=== PATIENT | male | born 1995 | race American Indian/Alaskan Native ===

== ENCOUNTER 2021-12-30 10:47 | Emergency (ER) | payer SELFPAY ==
[2021-12-30 11:47] LABS: Hematocrit 36.6 % (35.5-45.6); Mean Corpuscular HGB Conc 35 % (32-34); Mean Corpuscular Volume 89 fl (84-94); Platelet Count 673 K/mm3 (140-440); Red Blood Count 4.13 M/mm3 (3.65-5.03); Red Cell Distribution Width 14.9 % (13.2-15.2)
[2021-12-30 12:06] LABS: BUN/Creatinine Ratio 5; Blood Urea Nitrogen 5 mg/dL (9-20); Hemolysis Index 10
[2021-12-30 12:58] LABS: Total Cells Counted 100
[2021-12-30 12:59] LABS: Ovalocytes Few; Platelet Estimate Consistent w Auto; Target Cells Few
[2021-12-30 13:00] LABS: Giant Platelets Few
[2021-12-30] MEDS ORDERED: MORPHINE 4 MG/1 ML INJ IV ONE (14:56)
[2021-12-30] MEDS ORDERED: SODIUM CHLORIDE 0.9% 1000 ML 2,000 ML IV ONE (14:56)
[2021-12-30] MEDS ORDERED: ACETAMINOPHEN 500 MG TAB PO ONE (14:57)
--- NOTE | 2021-12-30 15:02 | Emergency Department Report ---
ED General Adult HPI - General Chief complaint: GI Bleed Stated complaint: Abdominal pain. Diarrhea. Blood in stool. Time Seen by Provider: 12/30/21 14:22 Source: patient, RN notes reviewed Mode of arrival: Ambulatory Limitations: No Limitations - History of Present Illness Initial comments: The patient was evaluated in the emergency department for symptoms described in the history of present illness. He/she was evaluated in the context of the [facility] COVID-19 pandemic, which necessitated consideration that the patient might be at risk for infection with the virus that causes COVID-19. Institutional protocols and algorithms that pertain to the evaluation of patients at risk for COVID-19 are in a state of rapid change based on information released by regulatory bodies including the CDC and federal and state organizations. These policies and algorithms were followed during the patient's care in the emergency department. Please note that these policies, procedures and recommendations changed on a rapid basis. This is a pleasant and cooperative 26-year-old gentleman. He has a past medical history of HIV, and is currently made on Biktarvy therapy. He believes his CD4 count is 650, and his viral load is undetectable. He also reports she has been maintained on chronic dapsone therapy. He presents to the department today with a complaint of lower abdominal pain, and profuse diarrhea. Diarrhea is initially yellow, brown, and today he reports dark blood in his diarrhea. He denies additional antibiotics. Denies headache, neck pain, chest pain, shortness of breath, vomiting, dysuria, and testicular pain. He also reports no insertive/receptive anal intercourse. He endorses compliance with his medications. He is not COVID-19 vaccinated. He denies loss of taste and smell. He was previously following with infectious disease in [place], but has relocated locally, and is attempting to establish care here. -: Gradual, days(s) Location: abdomen Quality: aching Consistency: constant Improves with: rest Worsens with: other (Palpation) - Related Data Previous Rx's Medication Instructions Recorded Last Taken Type Acetaminophen [Non-Aspirin Extra 500 mg PO Q6HR PRN #30 tablet 12/30/21 Unknown Rx Strength] Ciprofloxacin HCl 500 mg PO BID #13 tab 12/30/21 Unknown Rx Metoclopramide [Reglan] 10 mg PO QID PRN #30 tablet 12/30/21 Unknown Rx Potassium Chloride 20 meq PO BID #60 packet 12/30/21 Unknown Rx metroNIDAZOLE [Flagyl] 500 mg PO Q8HR #20 tablet 12/30/21 Unknown Rx Allergies Allergy/AdvReac Type Severity Reaction Status Date / Time No Known Allergies Allergy Verified 12/30/21 10:52 ED Review of Systems ROS: Stated complaint: STOMAH PAIN/POSS FOOD POISONING Other details as noted in HPI Constitutional: fever. denies: malaise Eyes: denies: eye discharge ENT: denies: epistaxis Respiratory: denies: see HPI Cardiovascular: denies: chest pain Gastrointestinal: abdominal pain. denies: nausea, vomiting Genitourinary: denies: dysuria Musculoskeletal: denies: back pain Neurological: denies: weakness Hematological/Lymphatic: denies: easy bleeding ED Past Medical Hx - Medications Home Medications: Home Medications Medication Instructions Recorded Confirmed Last Taken Type Acetaminophen [Non-Aspirin Extra 500 mg PO Q6HR PRN #30 tablet 12/30/21 Unknown Rx Strength] Ciprofloxacin HCl 500 mg PO BID #13 tab 12/30/21 Unknown Rx Metoclopramide [Reglan] 10 mg PO QID PRN #30 tablet 12/30/21 Unknown Rx Potassium Chloride 20 meq PO BID #60 packet 12/30/21 Unknown Rx metroNIDAZOLE [Flagyl] 500 mg PO Q8HR #20 tablet 12/30/21 Unknown Rx ED Physical Exam - General Limitations: No Limitations General appearance: alert, in no apparent distress - Head Head exam: Present: atraumatic, normocephalic - Eye Eye exam: Present: normal appearance, EOMI. Absent: nystagmus - ENT ENT exam: Present: normal exam, normal orophraynx, mucous membranes moist, normal external ear exam - Neck Neck exam: Present: normal inspection, full ROM. Absent: tenderness, meningismus - Respiratory Respiratory exam: Present: normal lung sounds bilaterally. Absent: respiratory distress, wheezes, rales, rhonchi, stridor, decreased breath sounds - Cardiovascular Cardiovascular Exam: Present: regular rate, normal rhythm, normal heart sounds. Absent: bradycardia, tachycardia, irregular rhythm, systolic murmur, diastolic murmur, rubs, gallop - GI/Abdominal GI/Abdominal exam: Present: soft, tenderness. Absent: distended, guarding, rebound, rigid, pulsatile mass - Rectal Rectal exam: Present: deferred - Extremities Exam Extremities exam: Present: normal inspection, full ROM, other (2+ pulses noted in the bilateral upper and lower extremities. There is no palpable cord. negative Homans sign. Muscular compartments are soft. The pelvis is stable.). Absent: pedal edema, calf tenderness - Back Exam Back exam: Present: normal inspection, full ROM. Absent: tenderness, CVA tenderness (R), CVA tenderness (L), paraspinal tenderness, vertebral tenderness - Neurological Exam Neurological exam: Present: alert, oriented X3, normal gait, other (No facial droop. Tongue midline. Extraocular movements intact bilaterally. Facial sensation intact to light touch in V1, V2, V3 distribution bilaterally. 5 and a 5 strength in 4 extremities. Sensation intact to light touch in 4 extremities.). Absent: motor sensory deficit - Psychiatric Psychiatric exam: Present: normal affect, normal mood - Skin Skin exam: Present: warm, dry, intact, normal color. Absent: rash ED Course Vital Signs 12/30/21 12/30/21 12/30/21 10:50 14:24 14:31 Temperature 100.3 F H Pulse Rate 92 H 92 H 89 Respiratory 16 20 13 Rate Blood Pressure Blood Pressure 111/89 [Right] O2 Sat by Pulse 98 96 97 Oximetry O2 Sat by Pulse Oximetry [ Digit-Finger] 12/30/21 12/30/21 12/30/21 14:45 14:50 15:41 Temperature 98.8 F Pulse Rate 98 H 97 H Respiratory 13 18 Rate Blood Pressure 132/79 Blood Pressure 130/87 [Right] O2 Sat by Pulse 98 96 96 Oximetry O2 Sat by Pulse Oximetry [ Digit-Finger] 12/30/21 12/30/21 12/30/21 15:46 15:48 17:10 Temperature Pulse Rate Respiratory 18 18 Rate Blood Pressure Blood Pressure [Right] O2 Sat by Pulse Oximetry O2 Sat by Pulse 99 Oximetry [ Digit-Finger] - Reevaluation(s) Reevaluation #1: 12/30/21 16:32 Differential diagnosis, include but not limited to: Colitis, diverticulitis, enteritis, dysentery, viral syndrome, viral enteritis Assessment and plan: 26-year-old gentleman, with low-grade temperature, abdominal pain, diarrhea, that is brown stool with blood, by history, who in my examination, has a low-grade fever, low-grade tachycardia, no leukocytosis, he is immunocompetent, on Biktarvy, with a CD4 count of greater than 650, and an undetectable viral load by his history. Start with Tylenol, fluids, and replete potassium. Patient provided a stool sample, and it appears to be brown. Do not appreciate any gross blood. Patient declined a rectal examination. Obtain CT scan of the abdomen pelvis. Send stool studies. Patient is on chronic dapsone therapy but otherwise denies being on suppressive therapy. Reassess after initial diagnostics have resulted. 12/30/21 17:10 12/30/21 17:19 No active vomiting. Patient on cell phone. Patient feels improved. CT scan suggests colitis. Discussed this extensively with the patient. Specifically discussed need to follow-up with outpatient GI for outpatient colonoscopy once symptoms resolve, to evaluate for malignancy, cancer, tumor. We will treat empirically with ciprofloxacin, Flagyl. Have also sent stool studies. Patient indicates he is reliable to follow-up with outpatient primary care, GI and/or infectious disease. Counseled to avoid alcohol consumption while taking antibiotics. All questions answered. Return precautions reviewed. On final reassessment, patient resting comfortably, endorses understanding, and reliability to follow-up. - Pulse Oximetry Interpretation Digit-Finger Initial Pulse Oximetry Readin O2 Sat by Pulse Oximetry: 99 Actions Taken: none ED Medical Decision Making - Lab Data Result diagrams: 12/30/21 10:56 12/30/21 10:56 Vital Signs 12/30/21 12/30/21 12/30/21 10:50 14:24 14:31 Temperature 100.3 F H Pulse Rate 92 H 92 H 89 Respiratory 16 20 13 Rate Blood Pressure Blood Pressure 111/89 [Right] O2 Sat by Pulse 98 96 97 Oximetry 12/30/21 12/30/21 12/30/21 14:45 14:50 15:41 Temperature 98.8 F Pulse Rate 98 H 97 H Respiratory 13 18 Rate Blood Pressure 132/79 Blood Pressure 130/87 [Right] O2 Sat by Pulse 98 96 96 Oximetry 12/30/21 12/30/21 15:46 15:48 Temperature Pulse Rate Respiratory 18 18 Rate Blood Pressure Blood Pressure [Right] O2 Sat by Pulse Oximetry Lab Results 12/30/21 12/30/21 12/30/21 Range/Units 10:56 10:56 10:56 WBC 11.4 H (4.5-11.0) K/mm3 RBC 4.13 (3.65-5.03) M/mm3 Hgb 13.0 (11.8-15.2) gm/dl Hct 36.6 (35.5-45.6) % MCV 89 (84-94) fl MCH 31 (28-32) pg MCHC 35 H (32-34) % RDW 14.9 (13.2-15.2) % Plt Count 673 H (140-440) K/mm3 [place] % (Auto) Zoology Technical Officer Add Manual Diff Complete Total Counted 100 Seg Neuts % (Manual) 51.0 (40.0-70.0) % Band Neutrophils % 0 % Lymphocytes % (Manual) 22.0 (13.4-35.0) % Reactive Lymphs % (Man) 2.0 % Monocytes % (Manual) 20.0 H (0.0-7.3) % Eosinophils % (Manual) 3.0 (0.0-4.3) % Basophils % (Manual) 2.0 H (0.0-1.8) % Metamyelocytes % 0 % Myelocytes % 0 % Promyelocytes % 0 % Blast Cells % 0 % Nucleated RBC % Not Reportable Seg Neutrophils # Man 5.8 (1.8-7.7) K/mm3 Band Neutrophils # 0.0 K/mm3 Lymphocytes # (Manual) 2.5 (1.2-5.4) K/mm3 Abs React Lymphs (Man) 0.2 K/mm3 Monocytes # (Manual) 2.3 H (0.0-0.8) K/mm3 Eosinophils # (Manual) 0.3 (0.0-0.4) K/mm3 Basophils # (Manual) 0.2 H (0.0-0.1) K/mm3 Metamyelocytes # 0.0 K/mm3 Myelocytes # 0.0 K/mm3 Promyelocytes # 0.0 K/mm3 Blast Cells # 0.0 K/mm3 WBC Morphology Not Reportable TNR Hypersegmented Neuts Not Reportable Hyposegmented Neuts Not Reportable Hypogranular Neuts Not Reportable Smudge Cells Not Reportable Toxic Granulation Not Reportable Toxic Vacuolation Not Reportable Dohle Bodies Not Reportable Pelger-Huet Anomaly Not Reportable Janet Rods Not Reportable Platelet Estimate Consistent w auto Clumped Platelets Not Reportable Plt Clumps, EDTA Not Reportable Large Platelets Not Reportable Giant Platelets Few Platelet Satelliting Not Reportable Plt Morphology Comment Not Reportable RBC Morphology Not Reportable Dimorphic RBCs Not Reportable Polychromasia Few Hypochromasia Not Reportable Poikilocytosis Not Reportable Anisocytosis Not Reportable Microcytosis Not Reportable Macrocytosis Not Reportable Spherocytes Not Reportable Pappenheimer Bodies Not Reportable Sickle Cells Not Reportable Target Cells Few Tear Drop Cells Not Reportable Ovalocytes Few Helmet Cells Not Reportable [place] Bodies Not Reportable [place] Rings Not Reportable Judith Cells Not Reportable Bite Cells Not Reportable Crenated Cell Not Reportable Elliptocytes Not Reportable Acanthocytes (Spur) Not Reportable Rouleaux Not Reportable Hemoglobin C Crystals Not Reportable Schistocytes Not Reportable Malaria parasites Not Reportable Wu Bodies Not Reportable Hem Pathologist Commnt No Sodium 136 L (137-145) mmol/L Potassium 2.7 L* (3.6-5.0) mmol/L Chloride 92.4 L (98-107) mmol/L Carbon Dioxide 32 H (22-30) mmol/L Anion Gap 14 mmol/L BUN 5 L (9-20) mg/dL Creatinine 1.1 (0.8-1.3) mg/dL Estimated GFR > 60 ml/min BUN/Creatinine Ratio 5 % Glucose 97 (75-100) mg/dL Calcium 9.0 (8.4-10.2) mg/dL Magnesium (1.7-2.3) mg/dL Total Bilirubin (0.1-1.2) mg/dL Direct Bilirubin (0-0.2) mg/dL Indirect Bilirubin mg/dL AST (5-40) units/L ALT (7-56) units/L Alkaline Phosphatase (35-129) units/L Total Protein (6.3-8.2) g/dL Albumin (3.9-5) g/dL Albumin/Globulin Ratio % Lipase 10 L (13-60) units/L Urine Color (Yellow) Urine Turbidity (Clear) Urine pH (5.0-7.0) Ur Specific [place] (1.003-1.030) Urine Protein (Negative) mg/dL Urine Glucose (UA) (Negative) mg/dL Urine Ketones (Negative) mg/dL Urine Blood (Negative) Urine Nitrite (Negative) Urine Bilirubin (Negative) Urine Urobilinogen (<2.0) mg/dL Ur Leukocyte Esterase (Negative) Urine WBC (Auto) (0.0-6.0) /HPF Urine RBC (Auto) (0.0-6.0) /HPF 12/30/21 12/30/21 12/30/21 Range/Units 10:56 15:06 Unknown WBC (4.5-11.0) K/mm3 RBC (3.65-5.03) M/mm3 Hgb (11.8-15.2) gm/dl Hct (35.5-45.6) % MCV (84-94) fl MCH (28-32) pg MCHC (32-34) % RDW (13.2-15.2) % Plt Count (140-440) K/mm3 [place] % (Auto) Add Manual Diff Total Counted Seg Neuts % (Manual) (40.0-70.0) % Band Neutrophils % % Lymphocytes % (Manual) (13.4-35.0) % Reactive Lymphs % (Man) % Monocytes % (Manual) (0.0-7.3) % Eosinophils % (Manual) (0.0-4.3) % Basophils % (Manual) (0.0-1.8) % Metamyelocytes % % Myelocytes % % Promyelocytes % % Blast Cells % % Nucleated RBC % Seg Neutrophils # Man (1.8-7.7) K/mm3 Band Neutrophils # K/mm3 Lymphocytes # (Manual) (1.2-5.4) K/mm3 Abs React Lymphs (Man) K/mm3 Monocytes # (Manual) (0.0-0.8) K/mm3 Eosinophils # (Manual) (0.0-0.4) K/mm3 Basophils # (Manual) (0.0-0.1) K/mm3 Metamyelocytes # K/mm3 Myelocytes # K/mm3 Promyelocytes # K/mm3 Blast Cells # K/mm3 WBC Morphology Hypersegmented Neuts Hyposegmented Neuts Hypogranular Neuts Smudge Cells Toxic Granulation Toxic Vacuolation Dohle Bodies Pelger-Huet Anomaly Janet Rods Platelet Estimate Clumped Platelets Plt Clumps, EDTA Large Platelets Giant Platelets Platelet Satelliting Plt Morphology Comment RBC Morphology Dimorphic RBCs Polychromasia Hypochromasia Poikilocytosis Anisocytosis Microcytosis Macrocytosis Spherocytes Pappenheimer Bodies Sickle Cells Target Cells Tear Drop Cells Ovalocytes Helmet Cells May-[place] Bodies [place] Rings Judith Cells Bite Cells Crenated Cell Elliptocytes Acanthocytes (Spur) Rouleaux Hemoglobin C Crystals Schistocytes Malaria parasites Wu Bodies Hem Pathologist Commnt Sodium (137-145) mmol/L Potassium (3.6-5.0) mmol/L Chloride (98-107) mmol/L Carbon Dioxide (22-30) mmol/L Anion Gap mmol/L BUN (9-20) mg/dL Creatinine (0.8-1.3) mg/dL Estimated GFR ml/min BUN/Creatinine Ratio % Glucose (75-100) mg/dL Calcium (8.4-10.2) mg/dL Magnesium 1.90 (1.7-2.3) mg/dL Total Bilirubin 0.30 (0.1-1.2) mg/dL Direct Bilirubin < 0.2 (0-0.2) mg/dL Indirect Bilirubin 0.1 mg/dL AST 17 (5-40) units/L ALT 9 (7-56) units/L Alkaline Phosphatase 101 (35-129) units/L Total Protein 7.7 (6.3-8.2) g/dL Albumin 3.2 L (3.9-5) g/dL Albumin/Globulin Ratio 0.7 % Lipase (13-60) units/L Urine Color Yellow (Yellow) Urine Turbidity Cloudy (Clear) Urine pH 6.0 (5.0-7.0) Ur Specific [place] 1.018 (1.003-1.030) Urine Protein >500 (Negative) mg/dL Urine Glucose (UA) Neg (Negative) mg/dL Urine Ketones Neg (Negative) mg/dL Urine Blood Mod (Negative) Urine Nitrite Neg (Negative) Urine Bilirubin Neg (Negative) Urine Urobilinogen < 2.0 (<2.0) mg/dL Ur Leukocyte Esterase Neg (Negative) Urine WBC (Auto) > 1.0 (0.0-6.0) /HPF Urine RBC (Auto) > 1.0 (0.0-6.0) /HPF - Radiology Data Radiology results: pending, report reviewed, image reviewed CT abdomen pelvis w con INDICATION / CLINICAL INFORMATION: Lower abdominal pain, dysentery. TECHNIQUE: CT abdomen pelvis performed following 80 mL Omnipaque [address] scans at this location are performed using CT dose reduction for ALARA by means of automated exposure control. COMPARISON: None available. FINDINGS: Abdomen and pelvis: The liver, gallbladder, spleen, pancreas adrenal glands and kidneys are unremarkable. The lower lungs are clear. The colon is diffusely abnormal with fluid distention and prominent mucosal thickening throughout the colon this is especially severe within the rectum and distal sigmoid colon. No evidence of small bowel obstruction. There are multiple reactive appearing nodes identified throughout the mesentery. The abdominal aorta is unremarkable. There is moderate thoracolumbar degenerative changes. IMPRESSION: Moderate diffuse colitis especially within the distal sigmoid colon and rectum possibly infectious related. Mesenteric adenopathy is thought to be reactive. Signer Name: Davin Miller MD Signed: 12/30/2021 3:59 PM Workstation Name: [email or web address] Critical care attestation.: If time is entered above; I have spent that time in minutes in the direct care of this critically ill patient, excluding procedure time. ED Disposition Clinical Impression: Hypokalemia, Acute abdominal pain, Bloody diarrhea Disposition: HOME / SELF CARE / HOMELESS Is pt being admited?: No Does the pt Need Aspirin: No Condition: Good Additional Instructions: Cultures were sent today, and results will be available within the next 5 to 7 days. Please follow-up with a primary care doctor, infectious disease specialist, or gastroenterology physician within the next week, and have any 1 of these specialists contact medical records department to obtain culture results. Do not consume alcohol while taking the antibiotics. Take the pain medication, Tylenol as directed, potassium supplementation as directed, nausea medication as needed and directed, and antibiotics as directed. Patient is encouraged to consume foods that are high in potassium, such as banana, avocado, or potato. It is important of closely follow-up with outpatient GI for evaluation for outpatient colonoscopy, to make certain that the patient does not have cancer, tumor, malignancy. Please return to the emergency room right away with new pain, worsened pain, migration of pain, projectile vomiting, change in mental status, confusion, inability tolerate liquid feeds, new, worsened or different symptoms not present on the initial emergency room evaluation Advance diet as tolerated. Drink plenty of fluids. May take Tylenol as needed for fever and/or pain. Minimize/avoid consumption of Motrin, ibuprofen, Naprosyn, Aleve, heavy and spicy foods Referrals: [facility] [Provider Group] - 3-5 Days [facility] [Provider Group] - 3-5 Days [facility] [Provider Group] - 3-5 Days Forms: Accompanied Note
[2021-12-30 15:29] LABS: Alanine Aminotransferase 9 units/L (7-56); Albumin 3.2 g/dL (3.9-5)
[2021-12-30 15:35] LABS: Bilirubin,Direct < 0.2 mg/dL (0-0.2)
[2021-12-30 16:18] LABS: Bilirubin,Urine NEG (Negative); Blood,Urine MOD (Negative); Color,Urine Yellow (Yellow); Urobilinogen,Urine < 2.0 mg/dL (<2.0)
[2021-12-30 16:24] LABS: Protein,Urine >500 mg/dL (Negative)
[2021-12-30 16:25] LABS: RBC,Urine > 1.0 /HPF (0.0-6.0)
[2021-12-30 16:26] LABS: WBC,Urine > 1.0 /HPF (0.0-6.0)
[2021-12-30] MEDS ORDERED: POTASSIUM CHLORIDE ER 20 MEQ TAB PO ONE (16:26)
--- NOTE | 2021-12-30 17:04 | Cat Scan Report ---
CT abdomen pelvis w con INDICATION / CLINICAL INFORMATION: Lower abdominal pain, dysentery. TECHNIQUE: CT abdomen pelvis performed following 80 mL Omnipaque [address] scans at this location are performed using CT dose reduction for ALARA by means of automated exposure control. COMPARISON: None available. FINDINGS: Abdomen and pelvis: The liver, gallbladder, spleen, pancreas adrenal glands and kidneys are unremarka ble. The lower lungs are clear. The colon is diffusely abnormal with fluid distention and prominent mucosal thickening throughout the colon this is especially severe within the rectum and distal sigmoid colon. No evidence of small bow el obstruction. There are multiple reactive appearing nodes identified throughout the mesentery. The abdominal aorta is unremarkable. There is moderate thoracolumbar degenerative changes. IMPRESSION: Moderate diffuse colitis especially within the distal sigmoid colon and rectum possibly i nfectious related. Mesenteric adenopathy is thought to be reactive. Signer Name: Davin Miller MD Signed: 12/30/2021 4:59 PM Workstation Name: [employer]
[2021-12-30] MEDS ORDERED: metroNIDAZOLE 500 MG TAB PO ONE (17:09)
[2021-12-30] MEDS ORDERED: levoFLOXacin 500 MG TAB PO ONE (17:09)
[2021-12-30 17:25] LABS: Bacteria,Urine 1+ /HPF (Negative); Calcium Oxalate Crystals,Urine FEW; Hyaline Casts,Urine 18 /LPF; Mucus,Urine FEW /HPF
[2021-12-30] MEDS: POTASSIUM CHLORIDE 10 MEQ 10 MEQ/100 ML BAG IV SCH ×2 (17:30→20:04)
[2021-12-30 21:29] VITALS: BP 126/77
== END 2021-12-30 21:29 | disposition home or self-care (01) ==
LOC: ED 10:47
DX: R10.30 Lower abdominal pain, unspecified (principal); R19.7 Diarrhea, unspecified; E87.6 Hypokalemia
CPT/HCPCS: 36415; 74177; 80048; 80076; 81001; 82270; 83690; 83735; 85007; 85025; 87493; 96361; 96374; 99284; J2270; J3480; J7030; Q9967